=== PATIENT | female | born 1990 | race African-American/Black ===

== ENCOUNTER 2018-04-13 08:56 | Emergency (ER) | payer MEDICAID ==
[~2018-04-13] VITALS: Ht 167.6 cm; Wt 70.8 kg
[2018-04-13 09:17] VITALS: BP 123/51
== END 2018-04-13 10:24 | disposition home or self-care (01) ==
LOC: ER 09:02
DX: J03.90 Acute tonsillitis, unspecified (principal); J06.9 Acute upper respiratory infection, unspecified